=== PATIENT | female | born 1965 | race American Indian/Alaskan Native ===

== ENCOUNTER 2017-10-29 09:31 | Day surgery (SDC) | payer MEDICAID ==
[2017-10-27 14:40] LABS: Hematocrit 38.6 % (30.3-42.9); Hemoglobin 12.5 gm/dl (10.1-14.3); Mean Corpuscular HGB Conc 32 % (30-34); Mean Corpuscular Hemoglobin 29 pg (28-32); Mean Corpuscular Volume 89 fl (79-97); Platelet Count 236 K/mm3 (140-440); Red Blood Count 4.35 M/mm3 (3.65-5.03); Red Cell Distribution Width 13.2 % (13.2-15.2)
[2017-10-27 15:00] LABS: BUN/Creatinine Ratio 19; Blood Urea Nitrogen 13 mg/dL (7-17); Calcium 9.2 mg/dL (8.4-10.2); Hemolysis Index 11
[2017-10-27 16:05] LABS: Total Cells Counted 100
[2017-10-27 16:06] LABS: Large Platelets Few
[2017-10-29] MEDS ORDERED: LACTATED RINGERS 1,000 ML IV SCH (10:00)
[2017-10-29] MEDS ORDERED: VERSED IV NR (10:00)
[2017-10-29] MEDS ORDERED: ZOFRAN IV PRN ×2 (10:00→11:51)
[2017-10-29] MEDS ORDERED: DILAUDID IV PRN (10:00)
--- NOTE | 2017-10-29 10:04 | Short Stay Summary ---
Short Stay Documentation Date of service: 10/29/17 Narrative H&P: 52y/o with dysfunctional uterine bleeding. Pelvic ultrasound demonstrated an enlarged uterus suggestive of adenomyosis. She reports heavy menses with the passage of clots. She has failed medical management. - History Principal diagnosis: Dysfunctional uterine bleeding Past Medical History: diabetes, hypertension, hyperlipidemia Past Surgical History: appendectomy, Other (cardiac ablation) Social history: - Allergies and Medications Current Medications: Allergies acetaminophen Allergy (Verified 10/24/17 12:28) Angioedema Home Medications Medication Instructions Recorded Confirmed Last Taken Type Losartan [Cozaar] 100 mg PO QDAY 10/24/17 10/24/17 Unknown History Simvastatin [Zocor TAB] 20 mg PO QHS 10/24/17 10/24/17 Unknown History Spironolactone [Aldactone] 50 mg PO QDAY 10/24/17 10/24/17 Unknown History Verapamil HCl [Verapamil ER] 120 mg PO DAILY 10/24/17 10/24/17 Unknown History glyBURIDE [Glyburide] 10 mg PO TID 10/24/17 10/24/17 Unknown History metFORMIN [Glucophage] 1,000 mg PO BID 10/24/17 10/24/17 Unknown History Active Medications Hydromorphone HCl (Dilaudid) 0.5 mg IV Q10MIN PRN PRN Reason: Pain , Severe (7-10) Lactated Ringer's (Lactated Ringers) 1,000 mls @ 100 mls/hr IV DIRECT LOVE Midazolam HCl (Versed) 2 mg IV PREOP NR Stop: 10/29/17 23:59 Ondansetron HCl (Zofran) 4 mg IV ONCE PRN PRN Reason: Nausea And Vomiting - Physical exam General appearance: no acute distress Integumentary: no rash HEENT: Atraumatic Lungs: Clear to auscultation Breasts: deferred Heart: Regular rate Gastrointestinal: normal Female Genitourinary: deferred Rectal Exam: deferred - Brief post op/procedure progress note Date of procedure: 10/29/17 Pre-op diagnosis: dysfunctional uterine bleeding Post-op diagnosis: same Procedure: Hysteroscopy Fibroid removal with Myosure Endometrial ablation with NovaSure Anesthesia: DALIAA Surgeon: DIONICIO STARK Estimated blood loss: minimal Pathology: list (leiomyoma) Specimen disposition: to lab Condition: stable - Hospital course Hospital course: The patient was admitted the day of surgery and underwent a hysteroscopy with findings of an submucosal myoma. A Man was performed along with the Ashish. Please see operative note for details of surgery. Postoperative course was uneventful. - Disposition Condition at discharge: Good Disposition: [id number] TO HOME OR SELFCARE Short Stay Discharge Plan Activity: other (pelvic rest for 1 week) Diet: regular Additional Instructions: Patient to schedule follow-up with Dr. Isaac 2-4 weeks Prescriptions: HYDROmorphone [Dilaudid] 2 mg PO Q6HR PRN #30 tablet PRN Reason: Pain Ibuprofen [Motrin] 800 mg PO Q8HR PRN #60 tablet PRN Reason: Pain
[2017-10-29] MEDS ORDERED: HumuLIN R SUB-Q NR (10:08)
[2017-10-29] MEDS ORDERED: XYLOCAINE MPF 2% ONE (10:17)
[2017-10-29] MEDS ORDERED: DILAUDID ONE (10:18)
[2017-10-29] MEDS ORDERED: DIPRIVAN 10 MG/ML IV ONE (10:18)
[2017-10-29] MEDS ORDERED: TORADOL ONE (10:32)
[2017-10-29] MEDS ORDERED: ZOFRAN ONE (10:32)
--- NOTE | 2017-10-29 10:41 | Anesthesia Consultation ---
Anesthesia Consult and Med Hx - Airway Anesthetic Teeth Evaluation: Good ROM Head & Neck: Adequate Mental/Hyoid Distance: Adequate Mallampati Class: Class II Intubation Access Assessment: Good - Pulmonary Exam CTA: Yes - Cardiac Exam Cardiac Exam: RRR - Pre-Operative Health Status ASA Pre-Surgery Classification: ASA3 Proposed Anesthetic Plan: General - Pre-Anesthesia Comment Pre-Anesthesia Comments: 52y with h/o cardiac ablation for RV tachycardia, managed medically for occasional PVC's from LV origin, HTN, NIDDM2, who presents for endometrial ablation. TTE shows LVEF 55%, mild LAE, mild LVH, no sig valvular pathology - Pulmonary Hx Smoking: No Hx Asthma: No - Cardiovascular System Hx Hypertension: Yes (x 4 yrs) Hx Cardia Arrhythmia: Yes (s/p ablation) - Central Nervous System Hx Seizures: No CVA: No Hx Psychiatric Problems: No - Endocrine Hx Renal Disease: No Hx Liver Disease: No Hx Non-Insulin Dependent Diabetes: Yes Hx Thyroid Disease: No - Hematic Hx Anemia: Yes - Other Systems Hx Alcohol Use: Yes (occas) Hx Cancer: No
--- NOTE | 2017-10-29 10:41 | Anesthesia Day of Surgery ---
Anesthesia Day of Surgery - Day of Surgery Patient Examined: Yes Patient H&P Reviewed: Yes Patient is NPO: Yes Beta Blockers: No (CCB) Cardiac Clearance: Yes Pulmonary Clearance: Yes Tej's Test: N/A
[2017-10-29] MEDS ORDERED: NACL 0.9% IR ONE (11:00)
--- NOTE | 2017-10-29 11:46 | Operative Report ---
Operative Report Operative Report: Date of procedure: 10/29/2017 Pre-operative diagnosis: Dysfunctional uterine bleeding Post-operative diagnosis: Same as above; submucosal myoma Procedure name(s): Hysteroscopy; endometrial ablation via NovaSure; and myomectomy with Myosure Surgeon: Fabiola Langston M.D. Improvement Engineer: None Anesthesia: General endotracheal anesthesia Findings small submucosal myoma Indication: 52-year-old [id number] with a history of dysfunctional uterine bleeding Procedure The patient was taken to the operating room and given general tracheal anesthesia without complication. The patient was prepped and draped in a normal sterile fashion. A bivalve speculum was placed in the patient's vagina single-tooth tenaculums placed on the anterior lip of the cervix. The cervical os was dilated with graduated dilators. A uterine sound was inserted. The hysteroscope was then placed. Insufflation of the uterine cavity was performed with normal saline. Gen. survey of the uterine cavity revealed small submucosal myoma. The hysteroscope was then removed. The Myosure device was then inserted. Removal of the myoma was performed with the Myosure. The entire myoma was unable to be extracted. The myosure device was then removed. The NovaSure device was then inserted. The endometrial length was 5.5 cm and the uterine width was 3.3 cm. The device was engaged and it passed the surveillance of the uterine cavity. The NovaSure device was then deployed with a energy of 100 W that lasted for 1 minute 27 seconds. The NovaSure device was then removed. The hysteroscope was again reinserted. There was evidence of charring of the endometrial surface. The remainder of the vaginal instruments were then removed atraumatically. The patient was then successfully extubated taken to the recovery room. All sponge laps and needle counts were correct 2.
[2017-10-29] MEDS ORDERED: TORADOL IV PRN (11:51)
[2017-10-29] MEDS: DILAUDID IV PRN ×2 (11:58→12:07)
[2017-10-29] MEDS ORDERED: DILAUDID PO PRN (13:02)
[2017-10-29 13:11] VITALS: BP 133/63
--- NOTE | 2017-10-29 13:36 | Post Anesthesia Evaluation ---
- Post Anesthesia Evaluation Patient Participated: Yes Airway Patent: Yes Stable Respiratory Function: Yes Nausea/Vomiting: No Temp > 96.8F: Yes Pain Manageable: Yes Adequeate Hydration: Yes Anesthesia Complications: No Block Receding Appropriately: Not Applicable Patient on Ventilator: No
== END 2017-10-29 14:13 | disposition home or self-care (01) ==
LOC: OR 09:31
PROVIDERS: ATTEND Obstetrics & Gynecology
DX: D25.0 Submucous leiomyoma of uterus (principal); N84.0 Polyp of corpus uteri; E11.9 Type 2 diabetes mellitus without complications; I10 Essential (primary) hypertension; E78.5 Hyperlipidemia, unspecified; Z98.890 Other specified postprocedural states; Z88.8 Allergy status to other drugs, medicaments and biological substances
CPT/HCPCS: 36415; 58561; 58563; 80048; 82962; 84703; 85007; 85025; 88305; A4217; C1782; J1170; J1885; J2250; J2405; J2704; J7120; J1815